=== PATIENT | female | born 1945 | race Caucasian/White ===

== ENCOUNTER 2022-08-25 06:44 | Emergency (ER) | payer MEDICARE, BC, SELFPAY ==
[2022-08-25 07:06] VITALS: BP 175/92; PULSE 61; TEMP 36.4; O2SAT 96; BMI 31.3
--- NOTE | 2022-08-25 07:21 | CTR_ITS ---
PROCEDURE INFORMATION: Exam: CT Abdomen And Pelvis Without Contrast Exam date and time: 08/25/2022 8:08 AM Age: 77 years old Clinical indication: Abdominal pain; Flank; Left; Prior surgery; Surgery type: Appy, hyst; Additional info: L flank/ab pain TECHNIQUE: Imaging protocol: Computed tomography of the abdomen and pelvis without contrast. Radiation optimization: All CT scans at this facility use at least one of these dose optimization techniques: automated exposure control; mA and/or kV adjustment per patient size (includes targeted exams where dose is matched to clinical indication); or iterative reconstruction. REPORTING DATA: Count of CT and Cardiac NM exams in prior 12 months: This patient has received 0 known CTs and 0 known cardiac nuclear medicine studies in the 12 months prior to the current study. COMPARISON: No relevant prior studies available. RADIATION DOSE METRICS: Total DLP (mGy-cm): 736.77 FINDINGS: Lungs: Lung bases are clear. Liver: The liver is normal. Gallbladder and bile ducts: The gallbladder is normal. There is no biliary dilation. Pancreas: The pancreas is unremarkable. Spleen: The spleen is unremarkable. Adrenal glands: The adrenal glands are unremarkable. Kidneys and ureters: The kidneys are unremarkable. No hydronephrosis or stones. No ureteral dilation. Stomach and bowel: The stomach is decompressed, preventing meaningful evaluation of wall thickness. The small bowel is nondilated. There is moderate distal descending and sigmoid colonic diverticulosis without evidence of diverticulitis. Appendix: The appendix is absent. Intraperitoneal space: There is no free air or significant intraperitoneal free fluid. Vasculature: There is mild aortic atherosclerotic disease. Lymph nodes: There is no lymphadenopathy in the retroperitoneum, mesentery, pelvis or inguinal regions. Urinary bladder: The urinary bladder is unremarkable. Reproductive: The uterus is absent. There is no adnexal mass or large cyst. 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 The pelvis and hips are unremarkable. Soft tissues: The abdominal wall is intact. CT/CT kidney stone [id number] IMPRESSION: 1. No obstructive uropathy. No stones. 2. Incidental findings above.
--- NOTE | 2022-08-25 07:22 | W.ED.BACK ---
HPI - Back Pain/Injury General: Chief Complaint: Abdominal Pain Stated Complaint: urinary pain Time Seen by Provider: 08/25/22 06:58 Source: patient Mode of arrival: ambulatory Limitations: no limitations History of Present Illness: Patient is a nice 77-year-old female who presents to ED today with a complaint of left flank pain that initially started about 2 days ago. She does feel like pain started fairly suddenly. She reports pain seems to radiate around into the left side of her abdomen and has had some mild nausea without episodes of emesis. She states yesterday pain seemed to let off slightly but states it came back today with a vengeance . Patient denies history of nephro or ureterolithiasis. She has no history of pyelonephritis. She denies dysuria, frequency, urgency, hematuria. Bowel movements have been normal. No fevers. She is not having any shortness of breath or chest pain. MD elicited complaint: back pain Onset (ago): day(s) Timing: constant Severity: severe Quality: sharp Location: left flank Radiation: abdomen Exacerbating factors: none Relieving factors: none Associated symptoms: Reports abdominal pain and nausea; Deny chills, change in bowel habits, dysuria, fatigue, fever(s), hematuria, urinary urgency or vomiting Work related injury: No Review of Systems Const: Denies: fever(s), chills, body aches, fatigue or malaise Card: Denies: chest pain Resp: Denies: dyspnea GI: Reports: abdominal pain and nausea; Denies: vomiting, GI cramping, change in bowel habits, hematochezia or melena : Reports: flank pain; Denies: difficulty voiding, dysuria, urinary frequency, urinary urgency, urinary hesitancy or hematuria Musc: Reports: back pain (L flank); Denies: neck pain, extremity pain, extremity swelling, joint pain or joint swelling Skin/Breast: Denies: rash Neuro: Denies: headache(s), numbness in extremities, weakness in extremities or sensory changes Physical Exam Const: COMMON NORMALS: no acute distress, average body habitus, patient oriented x3, no limitations, alert and well nourished GENERAL APPEARANCE: cooperative ORIENTATION/CONSCIOUSNESS: Yes awake, Yes oriented to person, Yes oriented to place and Yes oriented to time HENMT: COMMON NORMALS: normocephalic and atraumatic HEAD & SCALP: normal to inspection, normocephalic and atraumatic Eye: GENERAL EYE: appearance normal, both eyes and all related structures Neck/C-Spine: COMMON NORMALS: full ROM, no lymphadenopathy, no meningeal signs, no JVD and No carotid bruits GENERAL: Yes normal visual inspection Chest: COMMONS NORMALS: normal inspection of the chest and normal palpation of entire chest wall Resp: COMMON NORMALS: normal respiratory effort and clear to auscultation bilaterally AUSCULTATION: clear to auscultation bilaterally Cardio: COMMON NORMALS: no JVD, regular rate and regular rhythm RATE: regular rate RHYTHM: regular rhythm GI: COMMON NORMALS: Normal to inspection, nondistended, normoactive bowel sounds present, Soft to palpation, non-tender, No hepatosplenomegaly present and no masses PALPATION: Yes Soft to palpation and Yes No hepatosplenomegaly present : BLADDER/KIDNEY EXAM: Yes CVA tenderness on the left Back/Pelvis: COMMON NORMALS: thoracic and lumbar spine normal to inspection, no thoracic nor lumbar tenderness, thoraco-lumbar ROM normal and straight leg raise negative bilaterally GENERAL BACK: Yes CVA tenderness Extremity: COMMON NORMALS: normal to inspection GENERAL: Yes normal exam except as noted Neuro: TIM COMA SCALE: document GCS findings Tim coma scale eye opening: Spontaneous Tim coma scale verbal response: Orientated [place] coma scale motor response: Obey commands [place] coma scale total score: 15 COMMON NORMALS: patient oriented x3, CN's II-XII intact bilaterally, moves all extremities, no focal motor deficits, no sensory deficits noted and gait normal SENSORIUM/ORIENTATION: Yes alert, Yes oriented to person, Yes oriented to place and Yes oriented to time MENINGEAL SIGNS: Yes no meningeal signs Skin: COMMON NORMALS: no rashes or lesions noted GENERAL SKIN EXAM: no rashes or lesions noted Course Vital Signs: Vital signs: Vital Signs Temperature 97.5 F L 08/25/22 07:06 Pulse Rate 61 08/25/22 07:06 Respiratory Rate 18 08/25/22 08:33 Blood Pressure 175/92 08/25/22 07:06 Pulse Oximetry 96 08/25/22 07:06 Oxygen Delivery Me thod 08/25/22 07:06 MDM - Back Pain/Injury Medical Decision Making Patient here with left-sided flank pain that seems to radiate around into her abdomen. Vital signs are stable apart from some hypertension. Blood work including CBC, CMP, and UA are completely unremarkable. CT of her abdomen and pelvis is negative. She has no chest pain or shortness of breath. No urinary symptoms. I think at this time we have ruled out anything life-threatening/emergent. Discussed possibility of this being neuropathic in nature. Discussed closely watching symptoms for the presence of a rash that could indicate shingles. Recommend she contact her PCP Dr. Olivares to schedule a follow-up visit in 2 days for reevaluation. Strict return ED precautions given. Labs 08/25/22 08:20 08/25/22 08:20 Radiology Impressions Abdomen/Pelvis CT 08/25/22 07:21 IMPRESSION: 1. No obstructive uropathy. No stones. 2. Incidental findings above. Laboratory Results WBC 8.2 10^3/uL (4.0-10.0) 08/25/22 08:20 RBC 4.71 10^6/uL (4.1-5.3) 08/25/22 08:20 Hgb 13.6 g/dL (11.5-15.3) 08/25/22 08:20 Hct 42.5 % (37.0-47.0) 08/25/22 08:20 MCV 90.2 fl (81-99) 08/25/22 08:20 MCH 28.9 pg (28.0-34.0) 08/25/22 08:20 MCHC 32.0 g/dL (30.0-36.0) 08/25/22 08:20 RDW 12.5 % (12.1-15.1) 08/25/22 08:20 Plt Count 392 10^3/cmm (130-400) 08/25/22 08:20 MPV 10.4 fL (7.4-10.4) 08/25/22 08:20 Neut % (Auto) 69.8 % 08/25/22 08:20 Lymph % (Auto) 20.7 % 08/25/22 08:20 [place] % (Auto) 7.0 % 08/25/22 08:20 Eos % (Auto) 1.6 % 08/25/22 08:20 Baso % (Auto) 0.7 % 08/25/22 08:20 Neut # (Auto) 5.69 10^3/uL (1.8-7.7) 08/25/22 08:20 Lymph # (Auto) 1.7 10^3/uL (0.8-4.8) 08/25/22 08:20 [place] # (Auto) 0.6 10^3/uL (0.2-0.9) 08/25/22 08:20 Eos # (Auto) 0.1 10^3/uL (0.0-0.8) 08/25/22 08:20 Baso # (Auto) 0.1 10^3/uL (0.0-0.1) 08/25/22 08:20 Nucleated RBC % (auto) 0 % 08/25/22 08:20 Nucleated RBCs # 0.0 /100WBC 08/25/22 08:20 Sodium 137 mmol/L (136-145) 08/25/22 08:20 Potassium 4.3 mmol/L (3.5-5.1) 08/25/22 08:20 Chloride 101 mmol/L (98-107) 08/25/22 08:20 Carbon Dioxide 24 mmol/L (22-29) 08/25/22 08:20 Anion Gap 16.3 (5-19) 08/25/22 08:20 BUN 19 mg/dL (8-23) 08/25/22 08:20 Creatinine 0.9 mg/dL (0.5-0.9) 08/25/22 08:20 GFR Calculation Not Reportable 08/25/22 08:20 Calculated Osmolality 287 mOsm/kg (285-295) 08/25/22 08:20 Calcium 9.5 mg/dL (8.5-10.5) 08/25/22 08:20 Total Bilirubin 0.4 mg/dL (0.15-1.2) 08/25/22 08:20 AST 17 U/L (0-32) 08/25/22 08:20 ALT 12 U/L (0-33) 08/25/22 08:20 Alkaline Phosphatase 76 U/L (35-105) 08/25/22 08:20 Total Protein 7.1 g/dL (6.6-8.7) 08/25/22 08:20 Albumin 4.4 g/dL (3.5-5.2) 08/25/22 08:20 Globulin 2.7 g/dL (1.3-4.6) 08/25/22 08:20 Urine Color Straw (Yellow) 08/25/22 07:24 Urine Appearance Clear (CLEAR) 08/25/22 07:24 Urine pH 7 (5-7) 08/25/22 07:24 Ur Specific [place] 1.005 (1.005-1.030) 08/25/22 07:24 Urine Protein Neg (Negative) 08/25/22 07:24 Urine Glucose (UA) Norm (Normal) 08/25/22 07:24 Urine Ketones Negative (Negative) 08/25/22 07:24 Urine Blood Neg (Negative) 08/25/22 07:24 Urine Nitrate Negative (Negative) 08/25/22 07:24 Urine Bilirubin Neg (Negative) 08/25/22 07:24 Urine Urobilinogen Norm mg/dL (Negative) 08/25/22 07:24 Ur Leukocyte Esterase Negative (Negative) 08/25/22 07:24 Discharge Plan Discharge Patient Disposition: Home Clinical Impression: Acute left flank pain Condition: Stable Prescriptions: New hydrocodone-acetaminophen 5-325 mg tablet 1 tab PO Q6H PRN (Reason: pain) Qty: 14 0RF ondansetron 4 mg tablet,disintegrating 4 mg PO Q8H PRN (Reason: nausea and vomiting) Qty: 14 0RF Discharge Orders: Discharge ED (Routine); Ordered 08/25/22 Ordered By: Marina Moore Referrals: Turner Olivares DO [Primary Care Provider] - Patient Instructions: Opioid Safety, Pain Management Activity Restrictions/Additional Instructions: As we discussed please follow-up with your primary care provider Dr. Olivares in 2 days for reevaluation. You need to return to the emergency department for worsening or severe flank/abdominal/chest pain, shortness of breath or difficulty breathing, blood in your urine, fevers greater than 100.4, repetitive episodes of vomiting, lightheadedness/dizziness, or any other concerns you may have. I hope you begin to feel better soon. Coding Level of Care Code ED Insulation Board Head Saw Operator for Comfort Cox
[2022-08-25 07:48] LABS: Add Urine Microscopic? NO; Charge for UA Resulting for Rev
[2022-08-25 07:52] LABS: Bilirubin Urine Neg (Negative); Blood Urine Neg (Negative); Glucose Urine UA Norm (Normal); Ketones Urine Negative (Negative); Leukocyte Esterase Urine Negative (Negative); Nitrate Urine Negative (Negative); Protein Urine Neg (Negative); Specific Gravity, Urine 1.005 (1.005-1.030); Urine Appearance Clear (CLEAR); Urine Color Straw (Yellow); Urobilinogen Urine Norm (Negative); pH Urine 7 (5-7)
[2022-08-25 08:33] VITALS: RESP 18
[2022-08-25] MEDS: ondansetron 2 mg/ML SDV 2 mL 4 MG IVP (08:33)
[2022-08-25] MEDS: morphine 4 mg/mL SDV 1 mL IVP (08:33)
--- NOTE | 2022-08-25 08:34 | PC.NURSE ---
Meds were given IM due to not being able to get a IV, PA was notified
[2022-08-25 08:49] LABS: Basophils # 0.1 10^3/uL (0.0-0.1); Basophils % 0.7 %; Eosinophils # 0.1 10^3/uL (0.0-0.8); Eosinophils % 1.6 %; Hematocrit 42.5 % (37.0-47.0); Hemoglobin 13.6 g/dL (11.5-15.3); Lymphocytes # 1.7 10^3/uL (0.8-4.8); Lymphocytes % 20.7 %; Mean Corpuscular Hemoglobin 28.9 pg (28.0-34.0); Mean Corpuscular Volume 90.2 fl (81-99); Mean Platelet Volume 10.4 fL (7.4-10.4); Monocytes # 0.6 10^3/uL (0.2-0.9); Neutrophils # 5.69 10^3/uL (1.8-7.7); Neutrophils % 69.8 %; Nucleated Red Blood Cells % 0 %; Platelet Count 392 10^3/cmm (130-400); Red Blood Count 4.71 10^6/uL (4.1-5.3); Red Cell Distribution Width 12.5 % (12.1-15.1); White Blood Count 8.2 10^3/uL (4.0-10.0)
[2022-08-25 09:01] LABS: Alanine Aminotransferase 12 U/L (0-33); Albumin Level 4.4 g/dL (3.5-5.2); Alkaline Phosphatase 76 U/L (35-105); Anion Gap 16.3 (5-19); Aspartate Amino Transferase 17 U/L (0-32); Blood Urea Nitrogen 19 mg/dL (8-23); Calcium 9.5 mg/dL (8.5-10.5); Carbon Dioxide 24 mmol/L (22-29); Chloride 101 mmol/L (98-107); Creatinine Clr Calc Pharmacy 60.5307; Globulin 2.7 g/dL (1.3-4.6); Glucose 117 mg/dL (65-115); Osmolality Calculated 287 mOsm/kg (285-295); Potassium 4.3 mmol/L (3.5-5.1); Sodium 137 mmol/L (136-145); Total Bilirubin 0.4 mg/dL (0.15-1.2); Total Protein 7.1 g/dL (6.6-8.7)
[2022-08-25 09:18] VITALS: BP 175/92; PULSE 61; RESP 18; O2SAT 96
== END 2022-08-25 09:19 | disposition home or self-care (01) ==
PROVIDERS: Emergency Provider Physician Assistant; PCP Electrodiagnostic Medicine
DX: R10.9 Unspecified abdominal pain (principal); I10 Essential (primary) hypertension
CPT/HCPCS: 36415; 74176; 80053; 81003; 85025; 96374; 96375; 99283; 99285; J2270; J2405